=== PATIENT | female | born 1995 | race Caucasian/White ===

== ENCOUNTER 2016-12-16 13:13 | Inpatient (IN) | payer OTHER, MEDICAID ==
[2016-12-16] MEDS ORDERED: Lidocaine 1% MPF* 2 ML VIAL ONE (16:18)
[2016-12-16] MEDS ORDERED: Ibuprofen PED LIQ* 100 MG/5 ML UDC PO PRN (19:06)
[2016-12-16] MEDS ORDERED: LORazepam INJ* 2 MG/ML 1 ML VIAL IV PRN (19:06)
--- NOTE | 2016-12-16 19:25 | ADMNOTE ---
Admission Note HPI - HPI History of Present Illness: H&P DOS 12/16/16 Nicky Abraham is a 21 year old woman with medically intractable epilepsy and global developmental disability. Soon after her , she developed involuntary movements characterized by arm extension, apnea and cyanosis. She has only had 2 generalized tonic clonic seizures in her life with the first occurring around age 7 or 8 and the second during a long-term monitoring session in [place]. During this LTM session, she had frequent myoclonic seizures. She has previously been treated with Depakote and was also treated with a combination of this and lamotrigine. Lamictal seemed to eliminate GTCs but myoclonic seizures continued. At this time, she was under the care of Dr. Diaz, who started zonisamide in place of Depakote around 2002, and then she eventually came off Lamictal because she was doing so well. She has undergone genetic work up in the past which was unrevealing. Her myoclonic seizures have not been seen in a few years, but she frequently has episodes of sweaty palms and feet, deep breathing, eye rolling and shivering -like movements. She may also put her fingers in her ears. Each individual episode is brief but they will happen repeatedly over several minutes. This has been going on since at least 2013. She has undergone ambulatory EEG to try and characterize these events and her parents have also videotaped them. The ambulatory EEG demonstrated multifocal epileptiform discharges and slowing of the background rhythm. Discharges are activated by sleep but not clearly intermixed with sleep architecture. She had three events of heavy breathing, clammy hands and rubbing her feet on the bed and sometimes eye rolling and arm extension. These events were associated with some EEG changes, but they were not clearly ictal patterns and it was felt that there was a possibility that at least some of the observed EEG changes could be related to hyperventilation. In review of a video Mom provided during a clinic visit, I questioned whether some of the behavior could be self-stimulatory as well. Currently, these episodes have been happening less frequently (maybe once in the last month), but previously had occurred daily and sometimes multiple times per day. However, she usually has these episodes more during her menses and she is expecting this to come this week. Nicky is admitted for characterization of these episodes. PRIOR AEDs: Depakote Lamictal Epilepsy Risk Factors: complicated by premature contractions at 3 months, required a cerclage at 5 months. Marginal placenta previa. Nicky was born 3 weeks early by likely secondary to distress with an elevated heart rate. There was concern for sepsis and she was transferred to a NICU and received antibiotics. She was 5lbs 1.5oz at . PNEA Risk Factors: none PMH/Surg Hx/FS Hx/Imm Hx Musculoskeletal History: Comment Only: Other Musculoskeletal History - uses leg braces Sensory History: Denies: Hx Contacts or Glasses, Hx Hearing Aid Opthamlomology History: Denies: Hx Contacts or Glasses Neurological History: Reports: Hx Developmental Delay, Hx Seizures, Other Neuro Impairments/Disorders - severe cognitive and developmental delay, seizure disorder - Surgical History Surgery Procedure, Year, and Place: tubes placed in ears x3 Hx Anesthesia Reactions: No Infectious Disease History: No Infectious Disease History: Denies: Traveled Outside the [place] in Last 30 Days - Family History Known Family History: Positive: Unknown - Social History Alcohol Use: None Hx Substance Use: No Substance Use Type: Reports: None Hx Tobacco Use: No Smoking Status (MU): Never Smoked Tobacco EMU Exam - Exam Physical/Neurological Exam: Physical Exam: General: Well appearing in no acute distress. She has frequent bruxism Eyes: normal conjunctiva, pupils were equal and reactive. Disconjugate gaze and hypertelorism Neck: supple ENT: atraumatic, normal oropharynx Pulmonary: clear to auscultation, good respiratory effort Cardiac: regular rate and rhythmic, no murmurs/rubs/gallops, pulses palpable MSK: she has small feet but no contractures Derm: no rashes or lesions Neurological Exam: Mental Status: Awake and alert. Non-verbal. She moves her head back and forth repeatedly. Cranial Nerves: Visual de leon full to threat. Pupils were equal, round, and reactive constricting from 3mm to 2mm. Spontaneous versions are full. Facial musculature and sensation were symmetric. Hearing grossly intact to voice. Palate and tongue were not visualized. Motor: Bulk, tone, and strength were normal throughout. Pronator drift was not testable. There were no abnormal movements aside from voluntary head movements Sensory: Sensation to light touch intact. Romberg was not testable. Coordination: not testable Reflexes: 2+ throughout the upper and lower extremities with downgoing toes bilaterally. Gait: she is in her wheelchair and non-ambulatory EMU Review of Systems Review of Systems: A 12 point review of systems was completed and significantly positive for: decreased appetite recently, constipation. The remainder of the review was negative except as stated above in the HPI. EMU Diagnostics - Diagnostic Most Recent Vital Signs: Vital Signs: Temp Pulse Resp BP Pulse Ox 98.8 F 93 18 144/80 96 12/16/16 14:20 12/16/16 14:20 12/16/16 15:24 12/16/16 14:20 12/16/16 14:20 Interim video-EEG long-term monitoring report: Ambulatory EEG Mar 2016: frequent, multifocal epileptiform discharges. During waking, these were most often seen in the bilateral occipital regions, often with a lead-in or bias to the left. There were also frontal and left temporal discharges. The background otherwise showed a PDR of 7.5 to 8 Hz. She had 3 events during the recording. One event lasted 40 minutes and was as previously described in terms of semiology. With the third event that occurred in the morning, there was increased frequency of discharges, especially left temporal, but no clear evolution in terms of frequency or spatial distribution to suggest ictal activity. EMU Assessment/Plan - Assessment/Plan Assessment/Plan: 21 year old with global developmental delay and seizures with good control of myoclonic seizures, presenting with episodes of sweating/clammy hands, heavy breathing and foot movements which at times have occurred daily and sometimes multiple times per day. An ambulatory EEG failed to properly characterize these events. She is treated with zonisamide 200mg BID and these events continue. The goal of the present intermediate teacher video/EEG monitoring session is to characterize these events. Plan: Admit to the Epilepsy Service, Dr. Finney attending terminal clerk video EEG monitoring for the purpose of characterizing events above Seizure precautions IV infiltrated and pt has not had a convulsion in years. In addition, if she were to have a prolonged, will plan to use Diastat Home AED regimen: continue zonisamide 200mg BID Continue on other prescribed home medications. * ibuprofen prn pain and diphenhydramine prn itching
[2016-12-16] MEDS: CMCS: Zonisamide (NF) 50 MG CAP PO SCH (22:20)
[2016-12-16] MEDS: diPHENhydraMINE LIQ* 12.5 MG/5 ML UDC PO PRN (22:32)
[2016-12-16] MEDS ORDERED: Diazepam (ANTICONVULSANT)(*) 10 MG RECTAL.GEL PR PRN (23:10)
[2016-12-17] MEDS: CMCS: Zonisamide (NF) 50 MG CAP PO SCH ×2 (08:29→21:22)
--- NOTE | 2016-12-17 10:38 | EEG ---
PRISON VIDEO/EEG MONITORING - Monitoring Monitoring Start Date: 12/16/16 Current Monitoring Session: 12/16/16 to 12/23/16 EEG Clinical Indication: Nicky Abraham is a 21 year old woman with global developmental disability and epilepsy. She is on zonisamide monotherapy which provides good control of her myoclonic seizures. However, she has frequent episodes of sweating of the hands and feet, heavy breathing and rubbing her feet against the bed which, at times, have occurred daily and sometimes multiple times per day. These tend to happen more in the morning when she wakes up and increase during her menses. The nature of these spells is uncertain, and an ambulatory EEG was not able to characterize them fully. The current long-term monitoring session is undertaken in order to characterize these events. Introduction: INTRODUCTION: The EEG was monitored from 21 scalp electrodes. Nineteen electrodes consisted of the standard parasagittal, temporal and midline leads of the International 10 -20 system. In addition, special electrodes FT9 and FT10 were placed. EEG data were recorded on an [employer] system with simultaneous MPEG-4 digital video recording of patient behavior. EEG recording was in a monopolar montage with all electrodes referenced to FCz. Significant behavioral events were signaled by an event button, or putative electrical seizure events were detected by a computer program. All EEG data were reviewed in their entirety on a monitor with reconstruction of montages and adjustments of sensitivity and filtering. Simultaneous patient behavior was viewed on an adjacent monitor and correlated with the EEG. - Medications Active Medications: Diazepam (Diastat Acudial(*)) 10 mg MT ONCE PRN PRN Reason: convulsion >3 minutes Diphenhydramine HCl (Benadryl Liq*) 25 mg PO Q6H PRN PRN Reason: ITCHING Last Admin: 12/16/16 22:32 Dose: 25 mg Ibuprofen (Motrin Liq*) 390 mg PO Q6H PRN PRN Reason: PAIN Zonisamide (Zonegran (Nf)) 200 mg PO BID DEIDRE Last Admin: 12/17/16 08:29 Dose: 200 mg - Description Background: The waking background is frequently obscured by motion artifact due to frequent stereotypies consisting of head shaking back and forth and bruxism. When the quiet awake background is observed, it showed appropriate organization with clearly defined anterior-posterior voltage and frequency gradients. There was a defined posterior dominant rhythm of 8 to 8.5 Hertz, which was symmetrical and showed normal reactivity. Anteriorly, there was the expected pattern of lower voltage and more irregular theta and beta rhythms. The sleep background was appropriately organized with well-developed spindles and vertex waves indicative of stage 2 sleep. These sleep transients showed appropriate morphology and were bilaterally synchronous and symmetrical. Development of diffuse delta range frequencies with dropout of stage 2 architecture accompanied transition to slow wave sleep, and a lower voltage mixed frequency pattern associated with eye movements was consistent with REM sleep. Sleep greatly augmented epileptiform discharges, as described below. Intericatal Epileptiform Activity: #01 12/16: Medications: zonisamide 200mg BID During waking there were occasional discharges and slowing noted primarily in the right parieto-occipital region (T6/P8 maximal) and sometimes maximal at P4 and PZ but more rarely. These demonstrated a field to O2 and O1 at times. Discharges were spike and slow wave in morphology and moderate voltage. As she transitioned to drowsiness and light sleep, discharges were greatly augmented, often became diffuse in nature and would come in runs or clusters lasting several seconds. Sometimes, these were seen to be predominantly frontocentral, at other times there was a bias to the left or right hemisphere and still other times were posterior predominant. When posterior predominant, they often occurred around 2 Hz for several seconds. One of the longer runs of discharges lasted about 35 seconds and consisted of mixed spike, sharp and slow wave activity with a posterior predominance. There was no clear evolution into an ictal pattern. #02 12/17: Medications: zonisamide 200mg BID Background essentially unchanged. She did not sleep more than 1.5 hours during this portion of recording, so much of the background was obscured due to her continuous head shaking #03 12/18: Medications: zonisamide 200mg BID Background is unchanged. She slept better and interictal discharges and discharge clusters were as described above. #04 12/19: Medications: zonisamide 200mg BID Background is unchanged. #05 12/20: Medications: zonisamide 200mg BID Background is unchanged. She did not sleep at all during this 24 hours. #12/21: Medications: zonisamide 200mg BID Background is unchanged. She slept about 7 hours. #12/22: Medications: zonisamide 200mg BID Background is unchanged. She slept about 1.5 hours Ictal Activity: #01 12/16: No typical events. No ictal patterns #02 15: No typical events. No ictal patterns #03 16: No typical events. No ictal patterns #04 12/19: No typical events. No ictal patterns #05 12/20: No typical events. No ictal patterns #06 12/21: No typical events. No ictal patterns #07 12/22: No typical events. No ictal patterns - Impression Impression: This is an abnormal long-term monitoring session. The background is characterized by a slow posterior dominant rhythm and there are occasional epileptiform discharges during waking which predominate in the right greater than left parieto-occipital region. During sleep, these discharges augment and often become diffuse in nature, while at other times shifting in predominance between the right and left hemispheres. These findings are suggestive of a symptomatic, multifocal epilepsy. There were no seizures. Unfortunately, none of the patient's typical events of stiffening, sweaty hands and feet and heavy breathing occurred during the monitoring session. Therefore, the nature of these events remains uncertain.
--- NOTE | 2016-12-17 12:22 | PN ---
Epilepsy Service Progress Note - Subjective DOS 12/17/16 No events overnight. Mom still reports Nicky is not eating like she usually does , but did eat a KitKat bar this morning. Has not gotten her menses yet. Mom thinks maybe tomorrow. Mom also mentions that sometimes when she doesn't eat well, she is checked for a UTI. Urine smelled somewhat strong this AM. - Medications Active Medications: Diazepam (Diastat Acudial(*)) 10 mg [place] ONCE PRN PRN Reason: convulsion >3 minutes Diphenhydramine HCl (Benadryl Liq*) 25 mg PO Q6H PRN PRN Reason: ITCHING Last Admin: 12/16/16 22:32 Dose: 25 mg Ibuprofen (Motrin Liq*) 390 mg PO Q6H PRN PRN Reason: PAIN Zonisamide (Zonegran (Nf)) 200 mg PO BID DEIDRE Last Admin: 12/17/16 08:29 Dose: 200 mg EMU Diagnostics - Diagnostic Most Recent Vital Signs: Vital Signs: Temp Pulse Resp BP Pulse Ox 99.0 F 80 20 135/59 98 12/17/16 08:23 12/17/16 08:28 12/17/16 08:23 12/17/16 08:23 12/17/16 08:15 Interim video-EEG long-term monitoring report: #01 12/16: Background demonstrates a PDR of about 8 to 8.5. She has frequent head shaking during waking which obscures the waking background. During waking there were occasional discharges and slowing noted primarily in the right parieto-occipital region (T6/P8 maximal) and sometimes maximal at P4 and PZ but more rarely. As she transitioned to drowsiness and light sleep, discharges were greatly augmented, often became diffuse in nature and would come in runs or clusters lasting several seconds. Sometimes, these were seen to be predominantly frontocentral, at other times there was a bias to the left or right hemisphere. One of the longer runs of discharges lasted about 35 seconds and consisted of mixed spike, sharp and slow wave activity with a posterior predominance. There was no clear evolution into an ictal pattern. No typical events. EMU Exam - Exam Physical/Neurological Exam: Physical Exam: General: Well appearing in no acute distress. She has frequent bruxism MSK: she has small feet but no contractures Derm: no rashes or lesions Neurological Exam: Mental Status: Awake and alert. Non-verbal. She moves her head back and forth repeatedly. Reclining in bed, resting on her elbows Cranial Nerves: Visual de leon not retested. Spontaneous versions are full but she has disconjugate gaze. Facial musculature and sensation were symmetric. Hearing grossly intact to voice. Palate and tongue were not visualized. Motor: Bulk, tone, and strength were normal throughout. Pronator drift was not testable. There were no abnormal movements aside from voluntary head movements Sensory: Sensation to light touch intact. Romberg was not testable. Coordination: not testable Reflexes: 2+ throughout the upper and lower extremities with downgoing toes bilaterally. Gait: she is non-ambulatory EMU Progress Note Assessment/P - Assessment/Plan Assessment: 21 year old woman with global developmental disability and epilepsy presenting for characterization of events of sweating of the hands and feet, heavy breathing and rubbing feet on the bed/floor. 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 No typical events recorded yet. She is not eating well but this may be related to her expected menses. Will consider urinalysis if no improvement in the next couple of days or urine seems to be more foul smelling. Encouraged hydration po. Plan: * Continue saturator tender video EEG monitoring to capture typical episodes * Seizure precautions * Diastat prn convulsion - no IV needed (infiltrated yesterday) * continue home dose zonisamide 200mg BID * ibuprofen prn discomfort * Benadryl prn itching
[2016-12-18] MEDS: diPHENhydraMINE LIQ* 12.5 MG/5 ML UDC PO PRN ×2 (02:58→20:19)
[2016-12-18] MEDS: CMCS: Zonisamide (NF) 50 MG CAP PO SCH ×2 (09:17→20:19)
--- NOTE | 2016-12-18 14:57 | PN ---
Epilepsy Service Progress Note - Subjective DOS 12/18/16 Nicky did not sleep more than 1.5 hours overnight. She got her menses yesterday. She is not eating or drinking very well. Mom indicates this can happen sometimes with her menses and prefers to keep an eye on it and keep encouraging food and drink because she otherwise seems happy and not uncomfortable. Brought in an extra pillow and will try to make the room more dim tonight to aid in Nicky being able to settle down. No typical events yet. - Medications Active Medications: Diazepam (Diastat Acudial(*)) 10 mg MS ONCE PRN PRN Reason: convulsion >3 minutes Diphenhydramine HCl (Benadryl Liq*) 25 mg PO Q6H PRN PRN Reason: ITCHING Last Admin: 12/18/16 02:58 Dose: 25 mg Ibuprofen (Motrin Liq*) 390 mg PO Q6H PRN PRN Reason: PAIN Zonisamide (Zonegran (Nf)) 200 mg PO BID DEIDRE Last Admin: 12/18/16 09:17 Dose: 200 mg EMU Diagnostics - Diagnostic Most Recent Vital Signs: Vital Signs: Temp Pulse Resp BP Pulse Ox 98.9 F 86 20 107/59 98 12/18/16 08:00 12/18/16 08:00 12/18/16 08:00 12/18/16 08:00 12/17/16 08:15 Interim video-EEG long-term monitoring report: #01 12/16: Background demonstrates a PDR of about 8 to 8.5. She has frequent head shaking during waking which obscures the waking background. During waking there were occasional discharges and slowing noted primarily in the right parieto-occipital region (T6/P8 maximal) and sometimes maximal at P4 and PZ but more rarely. As she transitioned to drowsiness and light sleep, discharges were greatly augmented, often became diffuse in nature and would come in runs or clusters lasting several seconds. Sometimes, these were seen to be predominantly frontocentral, at other times there was a bias to the left or right hemisphere. One of the longer runs of discharges lasted about 35 seconds and consisted of mixed spike, sharp and slow wave activity with a posterior predominance. There was no clear evolution into an ictal pattern. No typical events. #02 12/17: background as above, unchanged. No ictal patterns, no typical events. EMU Exam - Exam Physical/Neurological Exam: Physical Exam: General: Well appearing in no acute distress. She has frequent bruxism MSK: she has small feet but no contractures Derm: no rashes or lesions Neurological Exam: Mental Status: Awake and alert. Non-verbal. She moves her head back and forth repeatedly. Sitting in her wheelchair next to her Dad. Cranial Nerves: Visual de leon not retested. Spontaneous versions are full but she has disconjugate gaze. Facial musculature and sensation were symmetric. Hearing grossly intact to voice. Palate and tongue were not visualized. Motor: Bulk, tone, and strength were normal throughout. Pronator drift was not testable. There were no abnormal movements aside from voluntary head movements Sensory: Sensation to light touch intact. Romberg was not testable. Coordination: not testable Reflexes: 2+ throughout the upper and lower extremities with downgoing toes bilaterally. Gait: she is non-ambulatory EMU Progress Note Assessment/P - Assessment/Plan Assessment: 21 year old woman with global developmental disability and epilepsy presenting for characterization of events of sweating of the hands and feet, heavy breathing and rubbing feet on the bed/floor. 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 No typical events recorded yet. She is not still eating well but this may be related to her expected menses. Will consider urinalysis if no improvement in the next couple of days or urine seems to be more foul smelling. Encouraged hydration po. Did not sleep well last night, perhaps partially due to light from monitor on EEG machine. Plan: * Continue intermission coordinator video EEG monitoring to capture typical episodes * Seizure precautions * Diastat prn convulsion - no IV needed * continue home dose zonisamide 200mg BID * ibuprofen prn discomfort * Benadryl prn itching * this evening, will turn off monitor when Nicky is getting ready for bed
[2016-12-19] MEDS: CMCS: Zonisamide (NF) 50 MG CAP PO SCH ×2 (09:40→21:15)
--- NOTE | 2016-12-19 11:18 | PN ---
Epilepsy Service Progress Note - Subjective DOS 12/19/16 Nicky slept better last night. She is eating a little better as while. She had a loose stool this morning. No typical events. Mom is surprised nothing has happened. We talked about whether she's identified anything that might trigger these at home other than her menses. She remarked that her keeps the house a little cooler than Nicky's room temp has been here, but she's not sure if this is really a trigger. She just recalls that Nicky gets goosebumps when this happens. - Medications Active Medications: Diazepam (Diastat Acudial(*)) 10 mg [place] ONCE PRN PRN Reason: convulsion >3 minutes Diphenhydramine HCl (Benadryl Liq*) 25 mg PO Q6H PRN PRN Reason: ITCHING Last Admin: 12/18/16 20:19 Dose: 25 mg Ibuprofen (Motrin Liq*) 390 mg PO Q6H PRN PRN Reason: PAIN Zonisamide (Zonegran (Nf)) 200 mg PO BID DEIDRE Last Admin: 12/19/16 09:40 Dose: 200 mg EMU Diagnostics - Diagnostic Most Recent Vital Signs: Vital Signs: Temp Pulse Resp BP Pulse Ox 98.9 F 101 18 106/45 100 12/18/16 19:40 12/18/16 19:40 12/19/16 07:54 12/18/16 19:40 12/18/16 19:40 Interim video-EEG long-term monitoring report: #01 12/16: Background demonstrates a PDR of about 8 to 8.5. She has frequent head shaking during waking which obscures the waking background. During waking there were occasional discharges and slowing noted primarily in the right parieto-occipital region (T6/P8 maximal) and sometimes maximal at P4 and PZ but more rarely. As she transitioned to drowsiness and light sleep, discharges were greatly augmented, often became diffuse in nature and would come in runs or clusters lasting several seconds. Sometimes, these were seen to be predominantly frontocentral, at other times there was a bias to the left or right hemisphere. One of the longer runs of discharges lasted about 35 seconds and consisted of mixed spike, sharp and slow wave activity with a posterior predominance. There was no clear evolution into an ictal pattern. No typical events. #02 12/17: background as above, unchanged. No ictal patterns, no typical events. #03 12/18: background as above, unchanged. No ictal patterns, no typical events. EMU Exam - Exam Physical/Neurological Exam: Physical Exam: General: Well appearing in no acute distress. She has frequent bruxism MSK: she has small feet but no contractures Derm: no rashes or lesions Neurological Exam: Mental Status: Awake and alert. Non-verbal. She is quieter this morning, reclining in bed, laughing intermittently. Cranial Nerves: Visual de leon full to threat. Spontaneous versions are full but she has disconjugate gaze. Facial musculature and sensation were symmetric. Hearing grossly intact to voice. Palate and tongue were not visualized. Motor: Bulk, tone, and strength were normal throughout. Pronator drift was not testable. There were no abnormal movements aside from voluntary head movements Sensory: Sensation to light touch intact. Romberg was not testable. Coordination: not testable Reflexes: 2+ throughout the upper and lower extremities with downgoing toes bilaterally. Gait: she is non-ambulatory EMU Progress Note Assessment/P - Assessment/Plan Assessment: 21 year old woman with global developmental disability and epilepsy presenting for characterization of events of sweating of the hands and feet, heavy breathing and rubbing feet on the bed/floor. 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 No typical events recorded yet. She is eating better and slept pretty well last night. Plan: * Continue glass blower video EEG monitoring to capture typical episodes * Seizure precautions * Diastat prn convulsion - no IV needed * continue home dose zonisamide 200mg BID * ibuprofen prn discomfort * Benadryl prn itching * turned room temp down to 68 degrees to mimic home environment.
[2016-12-19] MEDS: diPHENhydraMINE LIQ* 12.5 MG/5 ML UDC PO PRN (21:19)
[2016-12-20] MEDS: CMCS: Zonisamide (NF) 50 MG CAP PO SCH ×2 (09:04→20:36)
--- NOTE | 2016-12-20 14:23 | PN ---
Epilepsy Service Progress Note - Subjective DOS 12/20/16 No overnight events. Mom is frustrated nothing has happened but willing to stay longer. Nicky is doing fine, still not eating great, but urinating well. Slept ok last night - Medications Active Medications: Diazepam (Diastat Acudial(*)) 10 mg [place] ONCE PRN PRN Reason: convulsion >3 minutes Diphenhydramine HCl (Benadryl Liq*) 25 mg PO Q6H PRN PRN Reason: ITCHING Last Admin: 12/19/16 21:19 Dose: 25 mg Ibuprofen (Motrin Liq*) 390 mg PO Q6H PRN PRN Reason: PAIN Zonisamide (Zonegran (Nf)) 200 mg PO BID DEIDRE Last Admin: 12/20/16 09:04 Dose: 200 mg EMU Diagnostics - Diagnostic Most Recent Vital Signs: Vital Signs: Temp Pulse Resp BP Pulse Ox 98.6 F 94 20 100/64 100 12/20/16 09:07 12/20/16 09:07 12/20/16 12:10 12/20/16 09:07 12/20/16 09:07 Interim video-EEG long-term monitoring report: #01 12/16: Background demonstrates a PDR of about 8 to 8.5. She has frequent head shaking during waking which obscures the waking background. During waking there were occasional discharges and slowing noted primarily in the right parieto-occipital region (T6/P8 maximal) and sometimes maximal at P4 and PZ but more rarely. As she transitioned to drowsiness and light sleep, discharges were greatly augmented, often became diffuse in nature and would come in runs or clusters lasting several seconds. Sometimes, these were seen to be predominantly frontocentral, at other times there was a bias to the left or right hemisphere. One of the longer runs of discharges lasted about 35 seconds and consisted of mixed spike, sharp and slow wave activity with a posterior predominance. There was no clear evolution into an ictal pattern. No typical events. #02 12/17: background as above, unchanged. No ictal patterns, no typical events. #03 12/18: background as above, unchanged. No ictal patterns, no typical events. #04 12/19: background as above, unchanged. No ictal patterns, no typical events. EMU Exam - Exam Physical/Neurological Exam: Physical Exam: General: Well appearing in no acute distress. She has frequent bruxism MSK: she has small feet but no contractures Derm: no rashes or lesions Neurological Exam: Mental Status: Awake and alert. Non-verbal. She is quieter this morning, reclining in bed, laughing intermittently. Cranial Nerves: Visual de leon full to threat. Spontaneous versions are full but she has disconjugate gaze. Facial musculature and sensation were symmetric. Hearing grossly intact to voice. Palate and tongue were not visualized. Motor: Bulk, tone, and strength were normal throughout. Pronator drift was not testable. There were no abnormal movements aside from voluntary head movements Sensory: Sensation to light touch intact. Romberg was not testable. Coordination: not testable Reflexes: 2+ throughout the upper and lower extremities with downgoing toes bilaterally. Gait: she is non-ambulatory EMU Progress Note Assessment/P - Assessment/Plan Assessment: 21 year old woman with global developmental disability and epilepsy presenting for characterization of events of sweating of the hands and feet, heavy breathing and rubbing feet on the bed/floor. 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 No typical events recorded yet. She is eating better and slept pretty well last night. Reassured Mom that it's common for spells to calm down when patients get into this environment. She seemed relieved. Plan: * Continue long-term video EEG monitoring to capture typical episodes * Seizure precautions * Diastat prn convulsion - no IV needed * continue home dose zonisamide 200mg BID * ibuprofen prn discomfort * Benadryl prn itching * Mom may refrain from asking for Benadryl tonight as Nicky does not usually take this at home.
[2016-12-20] MEDS: diPHENhydraMINE LIQ* 12.5 MG/5 ML UDC PO PRN (23:16)
[2016-12-21] MEDS: CMCS: Zonisamide (NF) 50 MG CAP PO SCH ×2 (09:39→21:19)
--- NOTE | 2016-12-21 11:03 | PN ---
Epilepsy Service Progress Note - Subjective DOS 12/21/16 No events. Nicky did not sleep at all last night. Mom got outside a bit for a break. Nicky has been laughing a lot, Mom thinks because she's overtired. - Medications Active Medications: Diazepam (Diastat Acudial(*)) 10 mg [place] ONCE PRN PRN Reason: convulsion >3 minutes Diphenhydramine HCl (Benadryl Liq*) 25 mg PO Q6H PRN PRN Reason: ITCHING Last Admin: 12/20/16 23:16 Dose: 25 mg Ibuprofen (Motrin Liq*) 390 mg PO Q6H PRN PRN Reason: PAIN Zonisamide (Zonegran (Nf)) 200 mg PO BID DEIDRE Last Admin: 12/21/16 09:39 Dose: 200 mg EMU Diagnostics - Diagnostic Most Recent Vital Signs: Vital Signs: Temp Pulse Resp BP Pulse Ox 99.9 F 93 20 94/81 100 12/21/16 08:03 12/21/16 08:03 12/21/16 08:03 12/21/16 08:03 12/21/16 08:03 Interim video-EEG long-term monitoring report: #01 12/16: Background demonstrates a PDR of about 8 to 8.5. She has frequent head shaking during waking which obscures the waking background. During waking there were occasional discharges and slowing noted primarily in the right parieto-occipital region (T6/P8 maximal) and sometimes maximal at P4 and PZ but more rarely. As she transitioned to drowsiness and light sleep, discharges were greatly augmented, often became diffuse in nature and would come in runs or clusters lasting several seconds. Sometimes, these were seen to be predominantly frontocentral, at other times there was a bias to the left or right hemisphere. One of the longer runs of discharges lasted about 35 seconds and consisted of mixed spike, sharp and slow wave activity with a posterior predominance. There was no clear evolution into an ictal pattern. No typical events. #02 12/17: background as above, unchanged. No ictal patterns, no typical events. #03 12/18: background as above, unchanged. No ictal patterns, no typical events. #04 12/19: background as above, unchanged. No ictal patterns, no typical events. #05 12/20: background as above, unchanged. No ictal patterns, no typical events. EMU Exam - Exam Physical/Neurological Exam: Physical Exam: General: Well appearing in no acute distress. She has frequent bruxism MSK: she has small feet but no contractures Derm: no rashes or lesions Neurological Exam: Mental Status: Awake and alert. Non-verbal. She is reclining in bed, laughing intermittently. She appears tired Cranial Nerves: Visual de leon full to threat. Spontaneous versions are full but she has disconjugate gaze. Facial musculature and sensation were symmetric. Hearing grossly intact to voice. Palate and tongue were not visualized. Motor: Bulk, tone, and strength were normal throughout. Pronator drift was not testable. There were no abnormal movements aside from voluntary head movements Sensory: Sensation to light touch intact. Romberg was not testable. Coordination: not testable Reflexes: 2+ throughout the upper and lower extremities with downgoing toes bilaterally. Gait: she is non-ambulatory EMU Progress Note Assessment/P - Assessment/Plan Assessment: 21 year old woman with global developmental disability and epilepsy presenting for characterization of events of sweating of the hands and feet, heavy breathing and rubbing feet on the bed/floor. 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 No typical events recorded yet. She is sleep deprived so hopefully this will help provoke an event Plan: * Continue detention video EEG monitoring to capture typical episodes * Seizure precautions * Diastat prn convulsion - no IV needed * continue home dose zonisamide 200mg BID * ibuprofen prn discomfort * Benadryl prn itching/sleep
[2016-12-22] MEDS: CMCS: Zonisamide (NF) 50 MG CAP PO SCH ×2 (09:15→20:58)
--- NOTE | 2016-12-22 11:18 | PN ---
Epilepsy Service Progress Note - Subjective DOS 12/22/16 Nicky slept from about 11 to 6. No events. She had a BM this morning. She's eating better. - Medications Active Medications: Diazepam (Diastat Acudial(*)) 10 mg [place] ONCE PRN PRN Reason: convulsion >3 minutes Diphenhydramine HCl (Benadryl Liq*) 25 mg PO Q6H PRN PRN Reason: ITCHING Last Admin: 12/20/16 23:16 Dose: 25 mg Ibuprofen (Motrin Liq*) 390 mg PO Q6H PRN PRN Reason: PAIN Zonisamide (Zonegran (Nf)) 200 mg PO BID DEIDRE Last Admin: 12/22/16 09:15 Dose: 200 mg EMU Diagnostics - Diagnostic Most Recent Vital Signs: Vital Signs: Temp Pulse Resp BP Pulse Ox 99.2 F 92 20 113/65 100 12/22/16 09:20 12/22/16 09:20 12/22/16 09:20 12/22/16 09:20 12/22/16 09:20 Interim video-EEG long-term monitoring report: #01 12/16: Background demonstrates a PDR of about 8 to 8.5. She has frequent head shaking during waking which obscures the waking background. During waking there were occasional discharges and slowing noted primarily in the right parieto-occipital region (T6/P8 maximal) and sometimes maximal at P4 and PZ but more rarely. As she transitioned to drowsiness and light sleep, discharges were greatly augmented, often became diffuse in nature and would come in runs or clusters lasting several seconds. Sometimes, these were seen to be predominantly frontocentral, at other times there was a bias to the left or right hemisphere. One of the longer runs of discharges lasted about 35 seconds and consisted of mixed spike, sharp and slow wave activity with a posterior predominance. There was no clear evolution into an ictal pattern. No typical events. #02 12/17: background as above, unchanged. No ictal patterns, no typical events. #03 12/18: background as above, unchanged. No ictal patterns, no typical events. #04 12/19: background as above, unchanged. No ictal patterns, no typical events. #05 12/20: background as above, unchanged. No ictal patterns, no typical events. #06 12/21: background as above, unchanged. No ictal patterns, no typical events. EMU Exam - Exam Physical/Neurological Exam: Physical Exam: General: Well appearing in no acute distress. She has frequent bruxism MSK: she has small feet but no contractures Derm: no rashes or lesions Neurological Exam: Mental Status: Awake and alert. Non-verbal. She is sitting in her wheelchair, intermittently shaking her head back and forth. When I approached to talk to her , she calmed down and paid attention, then gave a little smile Cranial Nerves: Visual de leon full to threat. Spontaneous versions are full but she has disconjugate gaze. Facial musculature and sensation were symmetric. Hearing grossly intact to voice. Palate and tongue were not visualized. Motor: Bulk, tone, and strength were normal throughout. Pronator drift was not testable. There were no abnormal movements aside from voluntary head movements Sensory: Sensation to light touch intact. Romberg was not testable. Coordination: not testable Reflexes: 2+ throughout the upper and lower extremities with downgoing toes bilaterally. Gait: she is non-ambulatory EMU Progress Note Assessment/P - Assessment/Plan Assessment: 21 year old woman with global developmental disability and epilepsy presenting for characterization of events of sweating of the hands and feet, heavy breathing and rubbing feet on the bed/floor. 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 Zonisamide was not changed because these had been happening despite the medication, but she has not had any events, unfortunately. No typical events recorded yet. Will go back and re-review ambulatory EEG in light of the prolonged interictal EEG now recorded to see if any conclusions can be made in case she doesn't have an event in the next 24 hours. Plan: * Continue terminologist video EEG monitoring to capture typical episodes * Seizure precautions * Diastat prn convulsion - no IV needed * continue home dose zonisamide 200mg BID * ibuprofen prn discomfort * Benadryl prn itching/sleep
[2016-12-23 08:12] VITALS: BP 106/58
[2016-12-23] MEDS: CMCS: Zonisamide (NF) 50 MG CAP PO SCH (09:00)
--- NOTE | 2016-12-23 10:41 | PN ---
Epilepsy Service Progress Note - Subjective DOS 12/23/16 Nicky did not have any events overnight. She also did not fall asleep until 6 or 6:30am. I reviewed the ambulatory EEG data collected last March again and am still not sure if the events she's having are seizures or not, but it's possible. Another possibility (though I'm not sure why she would develop these all of the sudden) would be paroxysmal sympathetic storms, which can fit the description of Nicky's events. This was discussed with Mom - Medications Active Medications: Diazepam (Diastat Acudial(*)) 10 mg OR ONCE PRN PRN Reason: convulsion >3 minutes Diphenhydramine HCl (Benadryl Liq*) 25 mg PO Q6H PRN PRN Reason: ITCHING Last Admin: 12/20/16 23:16 Dose: 25 mg Ibuprofen (Motrin Liq*) 390 mg PO Q6H PRN PRN Reason: PAIN Zonisamide (Zonegran (Nf)) 200 mg PO BID DEIDRE Last Admin: 12/23/16 09:00 Dose: 200 mg EMU Diagnostics - Diagnostic Most Recent Vital Signs: Vital Signs: Temp Pulse Resp BP Pulse Ox 98.8 F 86 18 106/58 100 12/23/16 08:08 12/23/16 08:08 12/23/16 08:13 12/23/16 08:08 12/23/16 08:08 Interim video-EEG long-term monitoring report: #01 12/16: Background demonstrates a PDR of about 8 to 8.5. She has frequent head shaking during waking which obscures the waking background. During waking there were occasional discharges and slowing noted primarily in the right parieto-occipital region (T6/P8 maximal) and sometimes maximal at P4 and PZ but more rarely. As she transitioned to drowsiness and light sleep, discharges were greatly augmented, often became diffuse in nature and would come in runs or clusters lasting several seconds. Sometimes, these were seen to be predominantly frontocentral, at other times there was a bias to the left or right hemisphere. One of the longer runs of discharges lasted about 35 seconds and consisted of mixed spike, sharp and slow wave activity with a posterior predominance. There was no clear evolution into an ictal pattern. No typical events. #02 12/17: background as above, unchanged. No ictal patterns, no typical events. #03 7/16: background as above, unchanged. No ictal patterns, no typical events. #04 7/17: background as above, unchanged. No ictal patterns, no typical events. #05 7/18: background as above, unchanged. No ictal patterns, no typical events. #06 7/: background as above, unchanged. No ictal patterns, no typical events. #07 /: background as above, unchanged. No ictal patterns, no typical events. EMU Exam - Exam Physical/Neurological Exam: Physical Exam: General: Well appearing in no acute distress. She has frequent bruxism MSK: she has small feet but no contractures Derm: no rashes or lesions Neurological Exam: Mental Status: Awake and alert. Non-verbal. She is sitting in her wheelchair, intermittently shaking her head back and forth. She laughs intermittently. Cranial Nerves: Visual de leon full to threat. Spontaneous versions are full but she has disconjugate gaze. Facial musculature and sensation were symmetric. Hearing grossly intact to voice. Palate and tongue were not visualized. Motor: Bulk, tone, and strength were normal throughout. Pronator drift was not testable. There were no abnormal movements aside from voluntary head movements Sensory: Sensation to light touch intact. Romberg was not testable. Coordination: not testable Reflexes: 2+ throughout the upper and lower extremities with downgoing toes bilaterally. Gait: she is non-ambulatory EMU Progress Note Assessment/P - Assessment/Plan Assessment: 21 year old woman with global developmental disability and epilepsy presenting for characterization of events of sweating of the hands and feet, heavy breathing and rubbing feet on the bed/floor. 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 Zonisamide was not changed because these had been happening despite the medication, but she has not had any events, unfortunately. No typical events recorded. I reviewed the video again Mom has on her phone. Nicky is rubbing her feet back and forth on the bed, then will intermittently stop, take a deep breath in through her nose, eyes roll up briefly and she has a little shudder-type movement or stiffening of the upper extremities. She has several of these over a 5 minute period or so. I also reviewed the ambulatory EEG again but it was not clear whether there were clear ictal patterns associated. What is certain is that her EEG was much more active than it has been during this admission. I talked with Mom about the possibility that these could be small seizures, but it's not clear. I also considered the possibility of paroxysmal sympathetic storms, which fit the description of her events, but it's not clear why these would have started in the last 2 or 3 years out of the blue. We discussed using clonazepam prn for these. Plan: * d/c vermin exterminator video EEG monitoring * continue home dose zonisamide 200mg BID * clonazepam 0.5mg ODT daily prn for event lasting >3 minutes or cluster of events >3 minutes * FU my office in March as scheduled
--- NOTE | 2016-12-23 10:49 | DS ---
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 The patient had 0 events during her 7 day admission. Her EEG showed a slow background with multifocal epileptiform discharges which predominate in the posterior head regions and become diffusely expressed during sleep. The following medication medication changes were made during the testing: clonazepam 0.5mg ODT 1 tab daily prn a typical event was prescribed for use at home the next time she has an event lasting more than 3 minutes, or begins having a cluster of events that lasts more than 3 minutes. Discharge Examination: same as admission Destination: Home. Diet: Regular. Follow-up: March 10 Home Medications Medication Instructions Recorded Confirmed Type Zonegran 200 mg PO BID 12/16/16 12/16/16 History Clonazepam ODT (NF) 0.5 mg PO DAILY PRN #15 tab 12/23/16 Rx
--- NOTE | 2016-12-23 10:52 | PN ---
Work Excuse - Work Note Work Note: The above patient was admitted to [facility] for evaluation from 12/16 to 12/23/16. Jessica Abraham accompanied Nicky to the hospital throughout her stay and should be excused from work during the above dates. Sherly Finney MD 12/23/16 1050
== END 2016-12-23 10:45 | disposition home or self-care (01) | DRG 101 ==
LOC: EMU 13:13
PROVIDERS: ADMIT Psychiatry & Neurology Neurology; ATTEND Psychiatry & Neurology Neurology
PROC: 4A10X4Z Monitoring of Central Nervous Electrical Activity, External Approach (ICD-10-PCS; principal; 2016-12-16)
DX: G40.119 Localization-related (focal) (partial) symptomatic epilepsy and epileptic syndromes with simple partial seizures, intractable, without status epilepticus (principal); R62.50 Unspecified lack of expected normal physiological development in childhood
CPT/HCPCS: 95951; A9270-GY